=== PATIENT | male | born 1955 | race Caucasian/White ===

== ENCOUNTER 2017-12-28 09:57 | Emergency (ER) | payer OTHER ==
[~2017-12-28] VITALS: Ht 170.2 cm; Wt 96.6 kg
--- NOTE | ~2017-12-28 | EKG ---
[address] [place] [address] ELECTROCARDIOGRAM REPORT Name: ANDER FLANNERY [id number] Admission: 12/28/17 Attend Phys: Discharge: 12/28/17 Date of : 53 Report #: [id number] THIS REPORT FOR: //name// [facility] ED Test Date: 2017-12-28 Test Time: 10:45:34 Pat Name: ANDER FLANNERY Department: Room: Gender: M Plate Maker: JOHN : 1955 Requested By: Ruby Du Order Number: [id number] MD: Kyle Greer Measurements Intervals [place] Rate: 100 P: 61 [place]: 149 QRS: -20 QRSD: 87 T: 47 QT: 359 QTc: 463 Interpretive Statements Sinus tachycardia Inferior infarct, age indeterminate Poor R wave progression Compared to ECG 03/27/1998 01:35:00 Inferior Q waves now present Electronically Signed On 12-29-2017 9:02:35 CDT by Kyle Greer [email or web address] <ELECTRONICALLY SIGNED> By: Kyle Greer MD, [facility] 12/29/17 0902 [id number] [id number] Kyle Greer MD, FACC /EPI
[2017-12-28 11:10] LABS: RBC 4.33 mil/uL (4.50-6.00)
[2017-12-28 11:12] LABS: HEMATOCRIT 38.2 % (42.0-52.0); HEMOGLOBIN 12.7 gm/dL (14.0-18.0); MCH 29.4 pg (26.0-34.0); MCHC 33.3 g/dL (28.0-37.0); MCV 88.1 fL (80.0-100.0)
[2017-12-28 11:24] LABS: ANION GAP 17 mmol/L (7-16); BUN 21 mg/dL (7-18); CHLORIDE 100 mmol/L (98-107); CO2 19 mmol/L (21-32); CREATININE 1.2 mg/dL (0.7-1.3); GLUCOSE 133 mg/dL (74-106); SODIUM 136 mmol/L (136-145)
[2017-12-28 11:25] LABS: POTASSIUM 4.9 mmol/L (3.5-5.1)
[2017-12-28 11:28] LABS: ALBUMIN 3.6 g/dL (3.4-5.0); LIPASE 145 U/L (73-393); SGOT 41 U/L (15-37); SGPT 21 U/L (30-65); TOTAL BILIRUBIN 0.6 mg/dL (<0.1-1.0); TOTAL PROTEIN 8.5 g/dL (6.4-8.2); TROPONIN-I < 0.04 ng/mL (<0.06)
[2017-12-28 11:37] LABS: PLATELET COUNT 513 thou/uL (150-400); PLATELET ESTIMATE INCREASED
[2017-12-28 11:38] LABS: ABSOLUTE NEUTROPHILS 13.2 thou/uL (1.4-8.2); WBC 19.2 thou/uL (4.0-11.0)
[2017-12-28] MEDS ORDERED: ASPIR 8181 MG PO (13:43)
[2017-12-28] MEDS ORDERED: SYNJARDY 5-5001 EACH PO (13:44)
[2017-12-28] MEDS ORDERED: TRICOR145 MG PO (13:44)
[2017-12-28] MEDS ORDERED: CRESTOR20 MG PO (13:45)
[2017-12-28] MEDS ORDERED: LOPRESSOR25 PO (13:45)
[2017-12-28] MEDS ORDERED: SENNA-DOCUSATE1 EACH PO (13:46)
[2017-12-28] MEDS ORDERED: PERCOCET PO (13:47)
[2017-12-28] MEDS ORDERED: NITROSTAT0.4 M1 (13:47)
[2017-12-28 14:35] VITALS: BP 128/71
[2017-12-28 14:49] LABS: PHOSPHORUS 3.9 mg/dL (2.5-4.9)
[2017-12-28 14:57] LABS: APTT 20.5 Seconds (24.5-32.8); PROTIME 10.3 Seconds (9.3-11.4)
[2017-12-28 15:00] LABS: URINE BILIRUBIN 1+ (Negative); URINE BLOOD TRACE (Negative); URINE CLARITY CLEAR; URINE COLOR YELLOW; URINE GLUCOSE-RANDOM* 3+ (Negative); URINE KETONES 2+ (Negative); URINE LEUKOCYTES NEGATIVE (Negative); URINE NITRITE NEGATIVE (Negative); URINE PROTEIN (DIPSTICK) NEGATIVE (Negative); URINE SPECIFIC GRAVITY 1.025 (1.005-1.035); URINE UROBILINOGEN 0.2 E.U./dl (0.2-1.0)
[2017-12-28 15:01] LABS: ICTOTEST (BILI CONFIRMATORY) Negative (Negative)
== END 2017-12-28 16:51 | disposition short-term general hospital (02) ==
LOC: ER 09:57
PROVIDERS: Physician Assistant
DX: D72.829 Elevated white blood cell count, unspecified (principal); E86.0 Dehydration; R63.4 Abnormal weight loss; Z68.33 Body mass index [BMI] 33.0-33.9, adult; E78.00 Pure hypercholesterolemia, unspecified; I10 Essential (primary) hypertension; Z88.8 Allergy status to other drugs, medicaments and biological substances

== ENCOUNTER 2018-08-09 10:27 | Emergency (ER) | payer OTHER ==
[~2018-08-09] VITALS: Ht 170.2 cm; Wt 98.0 kg
[~2018-08-09 10:27] MED LIST: ASPIR 8181 MG PO; CRESTOR20 MG PO; LOPRESSOR25 PO; NITROSTAT0.4 M1; PERCOCET PO; SENNA-DOCUSATE1 EACH PO; SYNJARDY 5-5001 EACH PO; TRICOR145 MG PO
[2018-08-09] MEDS ORDERED: PROTONIX40 M1 PO (10:46)
[2018-08-09] MEDS ORDERED: MIRALAX17 GM PO (10:47)
[2018-08-09 13:17] VITALS: BP 134/78
[2018-08-09] MEDS ORDERED: NORCO 7.5-3251 EACH PO (13:20)
[2018-08-09] MEDS ORDERED: LIDOCAINE1 EACH TRANSDERM (13:31)
== END 2018-08-09 13:33 | disposition home or self-care (01) ==
LOC: ER 10:27
DX: S22.41XA Multiple fractures of ribs, right side, initial encounter for closed fracture (principal); S63.591A Other specified sprain of right wrist, initial encounter; I10 Essential (primary) hypertension; Z88.8 Allergy status to other drugs, medicaments and biological substances; E78.00 Pure hypercholesterolemia, unspecified; Z95.5 Presence of coronary angioplasty implant and graft; W01.0XXA Fall on same level from slipping, tripping and stumbling without subsequent striking against object, initial encounter; Y92.89 Other specified places as the place of occurrence of the external cause; Y93.89 Activity, other specified; Y99.8 Other external cause status